=== PATIENT | female | born 1995 | race Caucasian/White ===

== ENCOUNTER 2024-07-13 07:00 | Inpatient (IN) ==
--- NOTE | 2024-06-30 12:40 | Anesthesiology Consultation ---
Date of Service June 30, 2024 Assessment & Plan (1) Encounter for pre-operative examination: Chart Review Chart Review: entry level account representative initiated Patient considering TOLAC/ - BSG to anesthesiologist's discretion day of procedure (gestational DM) -Infectious Disease screening: Per PAT nursing assessment on 06/30/24. No known infectious disease contacts in past 10 days or current infectious disease symptoms. No recent travel outside the country. History Surgery Operation Date: 07/13/24 09:05 Proposed Procedures p Section (Delivery of Baby Through Abdominal Incision) - Shirlene Vale MD, FACOG Height/Weight Height: 5 ft 4 in Weight: 117.934 kg Allergies Allergy/AdvReac Type Severity Reaction Status Date / Time ciprofloxacin [From Cipro] Allergy Intermediate Rash Verified 06/30/24 10:16 egg white Allergy Severe Swelling Uncoded 06/30/24 10:16 of Lip/Tongue/Throat Medications Home Medications Medication Instructions Recorded Confirmed Last Taken aspirin 81 mg tablet 81 mg PO DAILY 03/31/24 06/30/24 06/20/24 09:00 docusate sodium 100 mg capsule 100 mg PO DAILY PRN Constipation 03/31/24 06/30/24 2 Days Ago ~03/29/24 vits no.124-ferrous fum 1 tab PO DAILY 03/31/24 06/30/24 06/20/24 09:00 27 mg iron-folic acid 800 mcg tablet ( Vitamin) triamcinolone acetonide 0.025 % 1 applic topical DAILY PRN linchen 03/31/24 06/30/24 1 Month Ago topical cream sclerosis ~02/29/24 acetone (urine) test (Ketone Urine #50 ea 04/14/24 06/29/24 Unknown Test strips) blood sugar diagnostic (OneTouch #150 ea 04/14/24 06/29/24 Unknown Verio test strips) blood-glucose meter (OneTouch #1 ea 04/14/24 06/29/24 Unknown Verio Reflect Meter) lancets 33 gauge (OneTouch Delica #150 ea 04/14/24 06/29/24 Unknown Plus Lancet) pen needle, diabetic 32 gauge x #100 ea 05/05/24 06/29/24 Unknown " albuterol sulfate 90 mcg/actuation 2 puff inhalation QID PRN 06/30/24 06/30/24 Unknown aerosol inhaler Shortness Of Breath insulin NPH isoph U-100 human 100 8 unit subcut .at bed time 06/30/24 06/30/24 Unknown unit/mL (3 mL) subcutaneous pen (Novolin N FlexPen) Past Medical History Medical History Anxiety hx, no current meds Asthma inh prn > "rare" use Chicken pox hx, age 2-3 months old Group B streptococcal infection during hx HSV (herpes simplex virus) infection hx, oral Insulin controlled gestational diabetes mellitus (GDM) during with current ; insulin at night only Lichen sclerosus hx Obesity PCOS (polycystic ovarian syndrome) Shingles hx, no recent issues Past Family History Family History Grandfather (Maternal) Diabetes Denies family history of Ovarian cancer Breast cancer Colorectal cancer Past Surgical History Surgical History H/O section S/P wisdom tooth extraction Social History Smoking Status: Former smoker Do You Dip or Chew Tobacco: No Smoking End Date: years ago Hx Alcohol Use: Yes (only occasional, not while ) Hx Substance Use: No substance use type: does not use Lab Results Anesthesia Preop Results Results Anesthesia Widget: WBC 12.67 K/ul (4.8-10.8) H 06/20/24 Hgb 12.4 g/dl (12.0-16.0) 06/20/24 Hct 37.4 % (37.0-47.0) 06/20/24 Plt 242 K/uL (130-400) 06/20/24 Na 135 mmol/L (136-145) L 06/20/24 K 3.8 mmol/L (3.5-5.1) 06/20/24 Cl 109 mmol/L (98-107) H 06/20/24 CO2 21 mmol/L (21-32) 06/20/24 BUN 9 mg/dl (6-23) 06/20/24 Creat 0.60 mg/dl (0.6-1.2) 06/20/24 Glucose Level 103 mg/dl (70-99(Fasting)) H 06/20/24
--- NOTE | 2024-07-11 12:35 | History & Physical Report ---
Date of Service July 11, 2024 Assessment & Plan (1) Previous delivery affecting : Plan: IUP at 39 weeks presents for repeat LTCS procedure and risks reviewed with the patient and all questions answered to her satisfaction and she is willing to proceed. History of Present Illness Primary Care Provider: DAVID Herndon Patient is a 28 yo female EDC 07/20/24 who presents at 39 weeks for repeat LTCS. prior LTCS performed because of intolerance of labor. complicated by GDM on insulin. testing has been reassuring. GBS (+) blood type A negative. Allergies Allergy/AdvReac Type Severity Reaction Status Date / Time ciprofloxacin [From Cipro] Allergy Intermediate Rash Verified 07/10/24 15:52 egg white Allergy Severe Swelling Uncoded 07/10/24 15:52 of Lip/Tongue/Throat Home Medications Medication Instructions Recorded Confirmed Type aspirin 81 mg tablet 81 mg PO DAILY 03/31/24 07/10/24 History docusate sodium 100 mg capsule 100 mg PO DAILY PRN Constipation 03/31/24 07/10/24 History vits no.124-ferrous fum 1 tab PO DAILY 03/31/24 07/10/24 History 27 mg iron-folic acid 800 mcg tablet ( Vitamin) triamcinolone acetonide 0.025 % 1 applic topical DAILY PRN linchen 03/31/24 07/10/24 History topical cream sclerosis acetone (urine) test (Ketone Urine #50 ea 04/14/24 07/10/24 Rx Test strips) blood sugar diagnostic (OneTouch #150 ea 04/14/24 07/10/24 Rx Verio test strips) blood-glucose meter (OneTouch #1 ea 04/14/24 07/10/24 Rx Verio Reflect Meter) lancets 33 gauge (OneTouch Delica #150 ea 04/14/24 07/10/24 Rx Plus Lancet) pen needle, diabetic 32 gauge x #100 ea 05/05/24 07/10/24 Rx 5/32" albuterol sulfate 90 mcg/actuation 2 puff inhalation QID PRN 06/30/24 07/10/24 History aerosol inhaler Shortness Of Breath insulin NPH isoph U-100 human 100 8 unit subcut .at bed time 06/30/24 07/10/24 History unit/mL (3 mL) subcutaneous pen (Novolin N FlexPen) Patient History Medical History Anxiety hx, no current meds Asthma inh prn > "rare" use Chicken pox hx, age 2-3 months old Group B streptococcal infection during hx HSV (herpes simplex virus) infection hx, oral Insulin controlled gestational diabetes mellitus (GDM) during with current ; insulin at night only Lichen sclerosus hx Obesity PCOS (polycystic ovarian syndrome) Shingles hx, no recent issues Surgical History H/O section S/P wisdom tooth extraction Family History Grandfather (Maternal) Diabetes Denies family history of Ovarian cancer Breast cancer Colorectal cancer Social History Smoking Status: Former smoker Tobacco Type: Cigarettes Second Hand Exposure: No; Do You Dip or Chew Tobacco: No; Hx Alcohol Use: Yes (only occasional, not while ) Hx Substance Use: No Preferred Language: Greenlandic Communication Ability: Effective Commercial Insulator Required: No Beliefs That Will Affect Care: None marital status: Single marital status details: Renny (26) [phone] Current Living Situation: Family and Significant Other Current Living Situation Comment: Lives with FOB and daughter, 1 dog and 1 cat- FOB changes litter current occupational status: employed current occupation: [employer] How many Children do You have: 2 Feels Safe at Home: Yes Assistive Devices: None Review of Systems All systems reviewed & are unremarkable except as noted in HPI & below Physical Exam Constitutional: WD/WN, vitals as above Respiratory: normal respiratory effort, lungs clear to auscultation Cardiovascular: RRR, no murmur, no edema Psychiatric: A+Ox3, euthymic affect Genitourinary: OB Exam Abdomen: + fundal height (term), + vertex and + estimated weight (7-8 pounds) OB Exam Monitor Tracing: + external FHT monitor used, + external uterine monitor used, + category I and + normal FHT variability Coding Level of Care Code 57642 INT INP/OBS CARE 1/40MIN Diagnoses Previous delivery affecting O34.219
--- NOTE | 2024-07-13 07:22 | History & Physical Bridge Note ---
Date of Service July 13, 2024 History & Physical Bridge Note I have examined the patient, reviewed the History & Physical and in the interval since the performance of the History & Physical I have noted the following changes of clinical significance: no changes noted
[2024-07-13 07:58] LABS: Hematocrit (blood only) 37.5 % (37.0-47.0); Hemoglobin 12.6 g/dl (12.0-16.0); Mean Corpuscular Hemoglobin 28.8 pg (25.0-34.0); Mean Corpuscular Hgb Conc 33.6 g/dL (32.0-36.0); Mean Corpuscular Volume 85.8 fL (80.0-100.0); Mean Platelet Volume 9.5 fL (9.4-12.4); Platelet Count 231 K/uL (130-400); RDW Coefficient of Variation 13.2 % (11.5-14.5); RDW Standard Deviation 41.1 fL (36.4-46.3); Red Blood Count 4.37 M/uL (4.20-5.40); White Blood Count 12.01 K/ul (4.8-10.8)
[2024-07-13] MEDS: ACETAMINOPHEN 500 MG TAB PO SCH (08:08)
[2024-07-13] MEDS: LACTATED RINGER'S 1,000 ML IV SCH (08:13)
[2024-07-13] MEDS ORDERED: SODIUM CHLORIDE 0.9% 100 ML IV PRN (08:26)
[2024-07-13] MEDS ORDERED: LACTATED RINGER'S 1,000 ML IV SCH (08:30)
[2024-07-13] MEDS ORDERED: OXYTOCIN 10 UNITS/ML VIAL ONE (08:37)
[2024-07-13] MEDS ORDERED: MoRPHine SULFATE PF 1 MG/ML 10 ML AMP/VIAL ONE (08:37)
[2024-07-13] MEDS ORDERED: METOCLOPRAMIDE HCL INJ 5 MG/ML 2 ML VIAL ONE (08:39)
[2024-07-13] MEDS ORDERED: ONDANSETRON INJ 2 MG/ML 2 ML VIAL ONE (08:39)
[2024-07-13] MEDS ORDERED: DEXAMETHASONE SOD INJ 4 MG/ML VIAL ONE (08:39)
[2024-07-13] MEDS ORDERED: PHENYLEPHRINE HCL 10 MG/ML VIAL ONE (08:42)
[2024-07-13] MEDS: CITRIC ACID/SODIUM CITRATE 15 ML UDC PO SCH (09:38)
[2024-07-13] MEDS: ceFAZolin 3000MG 3,000 MG/72.5 ML BAG IV SCH (10:13)
[2024-07-13] MEDS ORDERED: NALBUPHINE HCL INJ 10 MG/ML AMP IV PRN (10:35)
[2024-07-13] MEDS ORDERED: LACTATED RINGER'S 500 ML IV PRN (10:35)
[2024-07-13] MEDS ORDERED: NALOXONE HCL 1 MG in SODIUM CHLORIDE 0.9% 1,000 ML IV PRN (10:35)
[2024-07-13] MEDS ORDERED: MoRPHine SULFATE PF 1 MG/ML 10 ML AMP/VIAL INT SPINAL ONE (10:35)
[2024-07-13] MEDS ORDERED: NALOXONE HCL 0.08 MG in SYRINGE 1.8 ML IV PRN (10:35)
[2024-07-13] MEDS ORDERED: NALOXONE HCL 0.4 MG/1 ML VIAL/CARP IV PRN (10:35)
[2024-07-13] MEDS ORDERED: ONDANSETRON INJ 2 MG/ML 2 ML VIAL IV PRN ×2 (10:35→11:45)
[2024-07-13] MEDS ORDERED: diphenhydrAMINE 50 MG/ML VIAL IV PRN (10:35)
[2024-07-13] MEDS ORDERED: oxyCODONE HCL IR 5 MG TAB (IMMEDIATE RELEASE) PO PRN (10:35)
[2024-07-13] MEDS ORDERED: MoRPHine SULFATE 2 MG/ML CARP IV PRN (10:35)
[2024-07-13] MEDS ORDERED: ePHEDrine sulfate 50 MG/ML AMP IV PRN (10:35)
[2024-07-13] MEDS ORDERED: PROMETHAZINE 6.25 MG/50.25 ML BAG IV PRN (10:35)
[2024-07-13] MEDS ORDERED: NO NARCOTICS OR SEDATIVES SCH (10:45)
[2024-07-13] MEDS ORDERED: SODIUM CHLORIDE 0.9% 1,000 ML IV SCH (10:45)
[2024-07-13] MEDS ORDERED: DC INTRASPINAL MORPHINE SCH (10:45)
[2024-07-13] MEDS ORDERED: ePHEDrine sulfate 50 MG/5 ML SYR ONE (11:01)
--- NOTE | 2024-07-13 11:38 | Post Operative Brief Note ---
Immediate Post Op Note Date of Surgery July 13, 2024 Pre & Post Diagnosis Operation Date: 07/13/24 09:05 Pre-Op Diagnosis: History of Section Post-Op Diagnosis: same plus delivery of viable male I identified the patient and participated in the time-out.: Yes Procedure Operation Date: 07/13/24 09:05 Actual Procedures p Section (Delivery of Baby Through Abdominal Incision)living male child at 1050(Bilateral) - Shirlene Vale MD, FACOG Surgeon Shirlene Vale MD, FACOG Motor Vehicle Light Assembler Edson Taylor MD Quantitative Blood Loss (QBL) 243 Findings Consistent with Post-Op Diagnosis gravid uterus normal tubes and ovaries Specimens Specimen Description: a: placenta- hold b: cord blood Drains Leach Catheter (folely inserted without difficulty after spinal. Draining clear yellow urine. Output to be monitored by anesthesia intraoperatively) Anesthesia Type Spinal Complications none Disposition Accompanied Patient To Recovery: Yes Disposition: L&D
[2024-07-13] MEDS ORDERED: MAGNESIUM HYDROXIDE SUSP 30 ML UDC PO PRN (11:45)
[2024-07-13] MEDS ORDERED: HYDROCORTISONE ACETATE 25 MG SUPP PR PRN (11:45)
[2024-07-13] MEDS ORDERED: TRIAMCINOLONE ACET 0.025% CR 15 GM TUBE TOP PRN (11:45)
[2024-07-13] MEDS ORDERED: CALCIUM CARBONATE 500 MG CHEWABLE TAB PO PRN (11:45)
[2024-07-13] MEDS ORDERED: BENZOCAINE 20% SPRY 85 APPLN/85 GM CAN EXT PRN (11:45)
[2024-07-13] MEDS ORDERED: SENNA 8.6 MG TAB PO PRN (11:45)
--- NOTE | 2024-07-13 11:59 | Anesthesiology Progress Note ---
Date of Service July 13, 2024 Anesthesia Post Procedure Vital Signs Vital Signs: Temp Pulse Resp BP Pulse Ox 07/13/24 11:55 82 127/58 L 07/13/24 11:54 81 98 07/13/24 11:49 86 100 07/13/24 11:48 82 90 07/13/24 11:44 94 H 100 07/13/24 11:42 88 107/56 L 07/13/24 11:39 81 99 07/13/24 10:09 18 07/13/24 10:09 18 07/13/24 10:00 18 07/13/24 10:00 18 07/13/24 09:30 20 07/13/24 09:30 20 07/13/24 08:30 20 07/13/24 08:30 20 07/13/24 08:16 36.7 C 20 07/13/24 08:00 18 07/13/24 08:00 18 07/13/24 07:27 78 127/68 Transfer of Care Handoff Completed per policy Notes Mental Status: alert / awake / arousable Patient Amnestic to Procedure: Yes Nausea / Vomiting: adequately controlled Pain: adequately controlled Airway Patency, RR, SpO2: stable & adequate BP & HR: stable & adequate Hydration State: stable & adequate Neuraxial Anesthesia: was administered and sensory block is resolving Anesthetic Complications: no major complications apparent and Pt Satisfied with anesthetic care
[2024-07-13] MEDS: DIPHTHER/TETAN/PERTUS Vaccine (Tdap, Adol/Adult) 0.5mL IM ONE (12:09)
--- NOTE | 2024-07-13 12:17 | Operative Report ---
Post Operative Report Pre & Post Diagnosis Operation Date: 07/13/24 09:05 Pre-Op Diagnosis: History of Section Post-Op Diagnosis: same I identified the patient and participated in the time-out.: Yes Procedure Operation Date: 07/13/24 09:05 Actual Procedures p Section (Delivery of Baby Through Abdominal Incision)living male child at 1050(Bilateral) - Shirlene Vale MD, FACOG Surgeon Shirlene Vale MD, FACOG Iron Caster Edson Taylor MD Quantitative Blood Loss (QBL) 243 Findings Consistent with Post-Op Diagnosis Uterus is gravid consistent with a term in size bilateral ovaries and fallopian tubes are grossly normal. Specimens Placenta to hold Drains . Leach catheter to straight drainage draining clear urine at the end of the case Anesthesia Type Spinal Complications none Disposition Accompanied Patient To Recovery: Yes Disposition: L&D Indications Prior section- for repeat section. Description of Procedure At the patient received adequate subarachnoid block she was prepped and draped in usual sterile fashion. A low transverse skin incision was made through her prior scar and carried to the fascia with the same scalpel. The fascial incision was then extended with Vaughn scissors. The edges were then grasped with Odrita clamps, and the underlying rectus muscles bluntly sharply dissected off of the overlying fascia. The rectus muscles were fused along the midline and the peritoneal window could not be developed. The rectus muscle was grasped on the midline with hemostats and entered sharply with a scalpel. At this point we are in the peritoneal cavity. The inferior rectus muscles were then divided with a scalpel and blunt dissection. An omental adhesion to the peritoneum was taken down with the Bovie. Hemostasis was noted be excellent at the area of dissection. The bladder was then taken down off the anterior surface of the uterus. The lower uterine segment was then entered with a scalpel. The incision was then extended transversely by stretching the incision in a cephalad and caudad direction. Membranes were ruptured for clear fluid. Attempts to deliver the head were unsuccessful until Kiwi vacuum device was placed on the back of the head. There was 1 pop-off. With moderate fundal pressure and the Kiwi vacuum device, the infant delivered from the vertex presentation. Rest the then delivered easily. He was crying and vigorous and moving all 4 limbs. The cord was clamped and cut and the was handed off to Dr. Hopkins and the nursery staff were in attendance for the section. After cord was obtained, the placenta was expressed intact with a three-vessel cord. The uterus was then exteriorized and covered with clean lap sponge. The uterine cavity was explored and some retained membranes were removed. The uterine incision was then closed in 2 layers in a running locking and became fashion. Hemostasis was noted to be excellent on the uterine incision. The posterior cul-de-sac was suctioned for small amount of blood. The uterine incision was examined once more and continue to have excellent hemostasis. The uterus was then placed back inside the abdominal cavity. Uterine incision was examined once more and some bleeding along the lower edge of the incision was secured with the Bovie. The gutters were explored and found to be free of any clot or fluid. The rectus muscle were then brought together in the midline with individual stitches of 0 Monocryl. The fascia was reapproximated in a running fashion with 0 Vicryl. After irrigating the subcutaneous layer, the Susan's fascia was reapproximated with 2-0 plain catgut in a running fashion. Skin edges were reapproximated with 4-0 Vicryl in a subcuticular fashion. Patient tolerated procedure well and was stable upon arrival back in labor and delivery. I attest to the content of the Intraoperative Record and any orders documented therein. Any exceptions are noted below. OB Procedure Charges 19528
[2024-07-13] MEDS: KETOROLAC 30 MG/ML VIAL IV SCH (12:37)
[2024-07-13] MEDS: OXYTOCIN 20 UNITS/LR 1,002 ML IV SCH (13:09)
[2024-07-13] MEDS: SIMETHICONE 80 MG CHEW PO SCH (16:27)
[2024-07-13] MEDS: ACETAMINOPHEN 325 MG TAB PO SCH (17:52)
[2024-07-13] MEDS: DOCUSATE SODIUM 100 MG CAP PO SCH (20:59)
[2024-07-14] MEDS ORDERED: CITRIC ACID/SODIUM CITRATE 15 ML UDC PO SCH (06:00)
[2024-07-14 06:35] LABS: Basophils # (auto) 0.03 K/uL (0.00-0.20); Basophils % (auto) 0.2 %; Eosinophils # (auto) 0.23 K/uL (0.00-0.50); Eosinophils % (auto) 1.6 %; Hematocrit (blood only) 35.9 % (37.0-47.0); Hemoglobin 11.8 g/dl (12.0-16.0); Immature Granulocytes # (auto) 0.08 K/uL (0.01-0.20); Immature Granulocytes % (auto) 0.6 %; Lymphocytes # (auto) 3.47 K/uL (1.20-3.40); Lymphocytes % (auto) 24.3 %; Mean Corpuscular Hemoglobin 28.9 pg (25.0-34.0); Mean Corpuscular Hgb Conc 32.9 g/dL (32.0-36.0); Mean Corpuscular Volume 87.8 fL (80.0-100.0); Mean Platelet Volume 9.5 fL (9.4-12.4); Monocytes % (auto) 9.1 %; Neutrophils # (auto) 9.19 K/uL (1.40-6.50); Neutrophils % (auto) 64.2 %; Platelet Count 230 K/uL (130-400); RDW Coefficient of Variation 13.3 % (11.5-14.5); RDW Standard Deviation 42.7 fL (36.4-46.3); Red Blood Count 4.09 M/uL (4.20-5.40)
[2024-07-14] MEDS: PRENATAL VITAMIN 1 TAB PO SCH (08:30)
[2024-07-14] MEDS: FERROUS SULFATE 325 MG TAB PO SCH (08:30)
--- NOTE | 2024-07-14 08:38 | Obstetrical Progress Note ---
Date of Service July 14, 2024 Assessment & Plan (1) Encounter for care and examination after delivery: satisfactory post-op / exam continue current care plan Subjective Ambulation: ambulating normally Voiding: no voiding problems Passing Gas:: Yes Diet Tolerance:: regular diet Lochia:: Small Feeding Type:: bottle feeding doing well with minimal pain on current scheduled meds Review of Systems All systems reviewed & are unremarkable except as noted in HPI & below Physical Exam Constitutional WD/WN, vitals as above Gastrointestinal (Abdomen) Inspection/Auscultation: + abdominal surgical incision (dry & intact- area of ecchymosis inferiorly) Psychiatric A+Ox3, euthymic affect Results & Data Vital Signs (Past 12 Hours) Vital Signs Temp Pulse Resp BP Pulse Ox O2 Del Method 07/14/24 07:40 97.7 F 62 20 118/74 96 Room Air 07/14/24 04:07 98.1 F 70 18 110/65 98 Room Air 07/14/24 04:00 18 98 07/14/24 03:00 18 98 07/14/24 02:00 18 97 07/14/24 01:00 18 97 07/14/24 00:00 18 97 07/14/24 00:00 98.4 F 80 18 124/72 97 Room Air 07/13/24 23:00 18 98 07/13/24 22:16 18 97 07/13/24 21:15 20 98
[2024-07-14] MEDS ORDERED: ASPIRIN 81 MG ECTAB PO SCH (09:00)
[2024-07-14] MEDS ORDERED: KETOROLAC 30 MG/ML VIAL IV PRN (11:38)
[2024-07-14] MEDS: IBUPROFEN 600 MG TAB PO SCH (11:49)
[2024-07-14 15:20] VITALS: RESP 16
[2024-07-14] MEDS: bisacodyL 5 MG TABEC PO SCH (20:05)
--- NOTE | 2024-07-15 07:16 | Obstetrical Progress Note ---
Date of Service July 15, 2024 Assessment & Plan (1) Encounter for care and examination after delivery: (2) delivery, delivered, current hospitalization: Plan Plan d/c. Instructions given. Discussed concerning signs of incision. Rhogam if indicated. Day #:: 2 Subjective Ambulation: ambulating normally Voiding: no voiding problems Passing Gas:: Yes Diet Tolerance:: regular diet Lochia:: Small Feeding Type:: breast feeding pain controlled Physical Exam Constitutional WD/WN, vitals as above Respiratory normal respiratory effort, lungs clear to auscultation Cardiovascular RRR, no murmur, no edema Extremities: + edema (tr); no calf tenderness Gastrointestinal (Abdomen) soft, nt, nd, ff/nt at u incision--c/d/i, bruising. Results & Data Vital Signs (Past 12 Hours) Vital Signs Temp Pulse Resp BP Pulse Ox O2 Del Method 07/15/24 00:00 36.3 C L 65 16 124/78 96 Room Air 07/14/24 20:00 Room Air 07/14/24 20:00 36.4 C L 68 16 125/71 96 Room Air
[2024-07-15 09:17] VITALS: PULSE 68; TEMP 97.5; O2SAT 98
[2024-07-15 10:14] VITALS: BP 121/68
[2024-07-15] MEDS ORDERED: bisacodyL 10 MG SUPP PR PRN (11:31)
--- NOTE | 2024-07-16 16:48 | Discharge Summary ---
Date of Service July 16, 2024 Admission HPI Per Admitting Provider Patient is a 28 yo female EDC 07/20/24 who presents at 39 weeks for repeat LTCS. prior LTCS performed because of intolerance of labor. complicated by GDM on insulin. testing has been reassuring. GBS (+) blood type A negative. Discharge Data Consultations 07/13/24 07:19 Consult Anesthesiology Stat Procedures Performed Operation Date: 07/13/24 09:05 Actual Procedures p Section (Delivery of Baby Through Abdominal Incision)living male child at 1050(Bilateral) - Shirlene Vale MD, FACOG Discharge Plan Discharge Items Patient Disposition: Home - Self-Care Reason For Visit: History of Section Discharge Diagnosis: s/p repeat c/s Activity: Per Instructions section Non-emergency contact: Painter Ski Edge Call non-emergency contact if: you have any medication questions Follow-up/Referrals: Ruth Ann Knott CRNP [Primary Care Provider] - Diet: Regular Addtl Attending Provider Instructions: ACTIVITY RECOMMENDATIONS: * Gradual return to full activity over the next 2-3 weeks. * No lifting - nothing heavier than baby over the next 2-3 weeks. * Do not engage in vigorous exercise, sexual activity or sports until cleared by your physician. * Do not drive or operate any motorized equipment until cleared by your physician. * You may shower/bathe daily. MEDICATIONS: For discomfort or pain, you may use Acetaminophen (Tylenol), Ibuprofen (Advil), or Naproxen (Aleve) following the package directions. For constipation you may use Colace following the package directions. BREAST CARE: If you are not breast feeding: * Wear a supportive bra 24 hours a day for one to two weeks. * Avoid stimulating your breasts and nipples as much as possible during the first few weeks after delivery. * When taking a shower, have the warm water hit your back, not breasts. * When your breasts feel full, apply ice packs. Usually three to four times a day helps ease the discomfort. * Take a mild pain medication (Tylenol / Motrin) when you are uncomfortable. If breast feeding: * Use breast milk to lubricate nipples. Lansinoh cream may be used for sore nipples. You do not need to remove cream prior to breast feeding. If using a different brand of cream, check the label for directions regarding removal of cream prior to nursing. * Wear a supportive bra. * If having problems with breasts or breast feeding, call a independent consultant or your health care provider. SPECIAL CARE INSTRUCTIONS: When you are discharged from the hospital, it is important for you to follow the instructions listed below: * During the first week at home, you should be able to care for yourself and your baby. In addition, the usual light household activities are encouraged. * Limit your activities to the way you feel. Do not try to clean the house or move furniture. Be sensible. * If you actively engage in sports and have done so up until the time of your delivery, you may resume these activities as soon as you feel able. This may take up to one month or even longer. Use good judgment. * Continue to take your vitamins for at least six weeks after the of your baby. * Your diet need not be limited unless you were on a special diet before your delivery. Breast-feeding mothers need around 2500 calories per day and at least 64-80 ounces of fluid per day (8 to 10 glasses). * You should eat foods from the four major food groups. Crash diets or fad diets are to be avoided. Eating lean meats, fresh fruits and vegetables, low-fat dairy products, high fiber foods and a regular exercise program, will help you get back to your pre- weight without putting your health at risk. * Constipation is sometimes a problem after delivery. Take a mild laxative as needed. If breast feeding, Milk of Magnesia is acceptable to use. You may use a suppository or Fleets enema. * A daily shower or tub bath is suggested. Wash incision daily with warm soapy water and pat dry. It doesn't need to be covered unless drainage is present. * A bloody vaginal discharge will usually continue until around four weeks . A small amount of bleeding may continue for as long as six weeks. Vaginal discharge changes from the bright red bleeding after delivery to pink then brownish and finally yellowish-pink before becoming white and disappearing. * Bleeding may increase with activity. Your first period may come in 4-8 weeks. If you are breast feeding, your period may be delayed even longer. * Warner (sex) can begin whenever both you and your partner feel comfortable and do not have any form of genital infection. It is recommended that you wait at least six weeks for internal and external healing to occur. If you have questions, please talk to your health care practitioner. A condom should be used to prevent infection and . * Foreplay, gentle intercourse and lubrication is very important the first several times to prevent pain. A water-based lubricant such as K-Y jelly or Astroglide may be used. * If you have RH negative blood and your baby is RH positive, you will receive RHOGAM by injection prior to discharge. The nurse will give you a card to keep with you that has the date and place that you received RHOGAM after delivery. * During your care, you had a Rubella screen done to check for the presence of rubella antibodies in your blood. If your test was negative, you will receive a Rubella vaccine prior to discharge. This vaccine may cause a fever, soreness at the injection site and flu-like symptoms. If these symptoms persist, notify your health care practitioner. is not advised for one month after a Rubella vaccine. * Verbalizes understanding of car seat law as reviewed with patient nursing. * Car Seat hand-out given and reviewed with patient by nursing. * Shaken baby information reviewed with patient by nursing. Call you doctor if: * Heavy bleeding (saturating several pads an hour) or passing clots the size of your fist. * A fever >101 degrees F (38.3 degrees C) on two occasions four hours apart and/or chills. * Unusual pain in the pelvic or vaginal areas. * Call the doctor for any increased redness, drainage or swelling around the incision and any pain unrelieved by prescribed pain medication. * "Baby Blues" lasting longer than two weeks. If you have any questions or concerns, call your health care practitioner at . FOLLOW UP VISIT: * Please call the office at to schedule a 6 week examination. It is important you keep this appointment. It is important for you to make arrangements for either yearly or twice yearly check-ups thereafter. Pending Studies at Discharge: No Stand-Alone Forms: My [facility], Smoking Cessation Medications and DC Order Prescriptions: Continued oxycodone 5 mg tablet 5 mg PO TID PRN (Reason: pain) Qty: 10 0RF docusate sodium 100 mg Capsule 100 mg PO DAILY PRN (Reason: Constipation) Rx Instructions: PRN Vitamin 27 mg iron- 800 mcg Tablet 1 tab PO DAILY triamcinolone acetonide 0.025 % Cream 1 applic TOPICAL DAILY PRN (Reason: linchen sclerosis) Rx Instructions: PRN albuterol sulfate 90 mcg/actuation Hfa Aerosol Inhaler 2 puff INHALATION QID PRN (Reason: Shortness Of Breath) Discontinued (DME) Ketone Urine Test Strip See Rx Instructions .MEDSUPPLY Qty: 50 4RF Rx Instructions: As directed to check ketones in urine once a day in the morning (DME) OneTouch Verio test strips Strip See Rx Instructions .MEDSUPPLY Qty: 150 4RF Rx Instructions: check blood sugars 4 times a day (DME) blood-glucose meter [OneTouch Verio Reflect Meter] Misc See Rx Instructions miscellaneous .MEDSUPPLY Qty: 1 0RF Rx Instructions: As directed (DME) lancets [OneTouch Delica Plus Lancet] 33 gauge misc See Rx Instructions .MEDSUPPLY Qty: 150 4RF Rx Instructions: As directed check blood sugars 4 times a day (DME) pen needle, diabetic 32 gauge x 5/32" needle See Rx Instructions miscellaneous .MEDSUPPLY Qty: 100 0RF Rx Instructions: As directed to use with insulin pen aspirin 81 mg Tablet 81 mg PO DAILY Novolin N FlexPen 100 unit/mL (3 mL) insulin pen 8 unit subcut .at bed time Rx Instructions: Inject 8 units at bed time; increase as needed; TDD up to 40 units a day. Discharge Orders: Discharge Order (Routine); Ordered 07/15/24 Ordered By: Reshma Gaytan Admission Data Admit Date/Time: 07/13/24 07:00 Attending Provider: Shirlene Vale Admit Provider: Shirlene Vale Primary Care Provider: Ruth Ann Knott Other Providers: Reshma Gaytan Other Interventions: Discharge Summary Assessment (RN) Last Done: 07/15/24 10:13 Coding Level of Care Code 78553 IN/OBS DISCH 30 MIN/LESS
== END 2024-07-15 12:50 | disposition home or self-care (01) | DRG 788 ==
LOC: 4S1 07:00 → EDSTATUS 07:30 → 4E2 14:20